=== PATIENT | male | born 1975 | race Caucasian/White ===

== ENCOUNTER 2019-11-12 09:26 | Emergency (ER) | payer SELFPAY ==
[~2019-11-12] VITALS: Ht 162.6 cm; Wt 95.3 kg
[2019-11-12 09:32] VITALS: BP 190/111
--- NOTE | 2019-11-12 09:32 | NUR ---
Patient ambulated to bed 4. RN evaluating patient at bedside.
--- NOTE | 2019-11-12 09:55 | NUR ---
89 Y/O M C/O CHEST PAIN 6/10 AT THE TIME AND SHORTNESS OF BREATH AFTER DRINKING BEER AND SNORTING METHAMPHETAMINES AT 7:00AM THIS MORNING. THE PATIENT STATES THAT HE HAS TAKEN THIS DRUG WITH ALCOHOL IN THE PAST AND THE SAME SYMPTOMS OCCURED, NOT TO THE EXTENT OF FEELING THE NEED TO SEEK TREATMENT. PT ON THE MONITOR, VS STABLE. PT RESTING COMFORTABLY. NKA MEDHX: NONE
--- NOTE | 2019-11-12 11:11 | NUR ---
PT RESTING COMFORTABLY, FRIEND AT BEDSIDE. VS STABLE.
--- NOTE | 2019-11-12 11:20 | NUR ---
MD AT BEDSIDE EXAMINING PATIENT.
[2019-11-12] MEDS ORDERED: KETOROLAC 60 MG/2 ML VIAL IM ONE (11:25)
[2019-11-12 12:01] VITALS: BP 144/99
== END 2019-11-12 12:01 | disposition home or self-care (01) ==
LOC: MED 09:26
DX: R07.89 Other chest pain (principal); F15.10 Other stimulant abuse, uncomplicated
CPT/HCPCS: 93005; 96372; 99283; J1885